=== PATIENT | male | born 1985 | race Two or more races ===

== ENCOUNTER → 2018-06-05 03:59 | Emergency (ER) | payer SELFPAY ==
--- NOTE | 2018-06-07 11:39 | ED PDOC ---
Arrival/HPI - General Chief Complaint: Medical Clearance - History of Present Illness Narrative History of Present Illness (Text): 06/05/18 04:05 Patient presented to the ER BIBA for public intoxication.Patient uncooperative verbally abusive yelling to be left alone.Pt. with staggering gait in ED.Refusing to answer questions. Past Medical History - Provider Review Nursing Documentation Reviewed: Yes - Infectious Disease Hx of Infectious Diseases: None Family/Social History - Physician Review Nursing Documentation Reviewed: Yes Family/Social History: Unknown Family HX Allergies/Home Meds Allergies/Adverse Reactions: Allergies Unobtainable Allergy (Verified 06/06/18 07:46) Review of Systems - Review of Systems Systems not reviewed;Unavailable: Intoxicated Physical Exam - Physical Exam Physical Exam Limitations: Uncooperative - Systems Exam Head: Present: Atraumatic, Normocephalic Pupils: Present: PERRL Respiratory/Chest: Present: Clear to Auscultation Cardiovascular: Present: Regular Rate and Rhythm Neurological: Present: Motor Func Grossly Intact, Normal Sensory Function Psychiatric: Present: Intoxicated Medical Decision Making ED Course and Treatment: 06/05/18 04:10 Pt. remained uncooperative attempting to leave the ER.Pt.was restrained for his safety. 06/05/18 04:30 Notified by ER staff that patient left accompanied with his father prior to discharge.No patient information made available. Disposition/Present on Arrival - Present on Arrival Any Indicators Present on Arrival: No History of DVT/PE: No History of Uncontrolled Diabetes: No Urinary Catheter: No History of Decub. Ulcer: No History Surgical Site Infection Following: None - Disposition Have Diagnosis and Disposition been Completed?: Yes Diagnosis: Alcohol intoxication Disposition: HOME/ ROUTINE Disposition Time: 04:30 Condition: STABLE
== END | disposition home or self-care (01) ==
LOC: EDSEX → ED 03:59
DX: F10.129 Alcohol abuse with intoxication, unspecified (principal)